=== PATIENT | female | born 1980 ===

== ENCOUNTER 2024-12-06 10:10 | Inpatient (IN) | payer OTHER ==
[~2024-12-06] VITALS: Ht 157.5 cm; Wt 92.0 kg
[2024-12-06] MEDS ORDERED: Bupropion HCl75 MG PO (13:19)
[2024-12-06] MEDS ORDERED: ESCI10 PO (13:19)
[2024-12-06] MEDS ORDERED: HALO2 PO (13:19)
[2024-12-06] MEDS ORDERED: OLANZAPINE20 M1 PO (13:21)
[2024-12-06] MEDS ORDERED: DEPAKOTE500 M1 PO (13:21)
[2024-12-06] MEDS ORDERED: Polyethylene Glycol 3350 17 gm PO PRN (13:35)
[2024-12-06] MEDS ORDERED: Ondansetron 4 MG SoluTab MM PRN (13:35)
[2024-12-06] MEDS ORDERED: Aluminum Hydroxide 320MG/5ML 473 ML PO PRN (13:40)
[2024-12-06] MEDS ORDERED: Haloperidol Lactate Inj. 5 MG/ML Injection IM PRN (13:40)
[2024-12-06] MEDS ORDERED: DiphenhydrAMINE HCl 50 MG/ML 1ML Vial IM PRN (13:40)
[2024-12-06 14:15] VITALS: BP 122/87
--- NOTE | 2024-12-06 15:23 | NUR ---
ADMISSTION NOTE: PT ARRIVED TO [facility] AT 1258 COMING FROM [facility] IN [place]. ALL BELONGINGS COLLECTED AND PLACED IN SAFE AND SECURE BIN. PT DRESSED DOWN INTO GREEN UNIT SCRUBS, SKIN CHECK COMPLETED BY THIS RN AND TEJAL Hutchins, SKIN WAS CLEAR OF ISSUES BUT NOTED THAT SHE HAS A CALLOUS ON THE OUTTER SIDE OF EACH LARGE TOE. PT STS HER REASON FOR ADMISSION IS THAT "I WANTED TO KILL MYSELF, MY FAMILY IS DYING, THEY ARE BEING MURDERED DAILY" PT STS HAVING A HX OF BPD, SCHIZO AFFECTIVE, ADHD. MOM & SISTER BOTH HAVE BPD AND WITH ADHD, ALL ARE LIVING PER PT. SHE STS NOT HAVING A PCP OR THERAPIST BUT GETS HER MEDICATION THROUGH [facility]. SHE ADMITS THAT SHE'S NOT BEEN TAKING HER MEDICATION AND THAT IT'S BEEN MONTHS SINCE SHE HAS HAD AN INVEGA SHOT. SHE ENDORSES GETTING A PO FORM OF INVEGA AT THE [facility] YESTERDAY. SHE IS LIVING ON SSI THAT HER FATHER CONTROLS AND RECEIVES SNAP. SHE ENDORSES BEING HOMELESS AND IS OFTEN INVOLVED IN ALTERCATIONS WHILE BEING ON THE STREETS. ADMITS SHE USES HER SSI TO PURCHASE HER DAILY METH AND OCCASIONAL FENTYNAL. DOES NOT HAVE TEETH AND NO DENTURES, OBTAINED A 9TH GRADE EDUCATION. SHE ENDORSES MULTIPLE UNSUCSESSFUL ATTEMPTS FOR SUICIDE. FIRST BEING AT AGE 14, SLITTING WRISTS, NEXT ATTEMPTED HANGING WITH SHEETS WHILE IN INTERMEDIATE AT AGE 21. AT SOME POINT SHE ALSO JUMPED OFF THE BRIDGE AT THE [facility] BUT NOTHING HAPPENED AND SHE DIDN'T DROWN LIKE SHE THOUGHT SHE MIGHT. HER FATHER HAS GUNS IN HIS HOME. PT DID STATE THAT SHE DID AN INPATIENT MONTHS LONG REHAB PROGRAM HERE IN [place] WITH DANTE, YEARS AGO. DURING INTERVIEW, PT SUDDENLY STARTED TALKING IN A BABY VOICE "MOMMY, I DON'T WANT YOU TO " PT BECAME SUDDENLY VERY EMOTIONAL, JUMPED UP AND STARTED SCREAMING. SHE WAS ABLE TO BE REDIRECTED TO SIT, RELAX AND BREATHE. SHE THEN STATED "I'M SORRY, THAT WAS JUST MY SON TALKING THROUGH ME." PT WAS ORIENTED TO THE UNIT. SHE IS VOLUNTARY AND UNDERSTANDS SHE WILL RECEIVE Q15 MIN MONITORING TO ENSURE PT SAFETY.
[2024-12-06 22:11] VITALS: BP 119/93
--- NOTE | 2024-12-07 04:50 | NUR ---
SHIFT SUMMARY: PATIENT WAS IN HER ROOM AT THE BEGINNING OF THE SHIFT, LYING ON HER BED. SHE APPEARED TO BE ASLEEP, BUT WOULD MOAN AT TIMES. SHE AWOKE FOR SEALER OPERATOR. SHE WAS UNABLE TO STAY ON TOPIC, AND HAD CONCERNS ABOUT "JACKSON" WHO IS "IN THE ROOM TRYING TO KILL MY PARENTS". SHE CONTINUED TO WORRY ABOUT "JACKSON" THROUGHOUT THE FIRST HALF OF THE SHIFT, YELLING OUT AND TALKING IN A LOW AND GROWLY VOICE AT TIMES. SHE WAS COMPLIANT WITH EVENING MEDICATIONS AND WITH PRN MEDICATIONS. IT APPEARED THAT SHE WAS RESPONDING TO AUDITORY HALLUCINATIONS EVIDENCED BY HER SAYING, "SHE KEEPS TALKING TO ME, SHE KEEPS TELLING ME SHE'S GOING TO KILL MY PARENTS!" SHE ATTEMPTED TO REST IN THE SECLUSION ROOM, BUT STATED, "JACKSON IS TOO LOUD HERE!" AND WENT BACK TO HER ROOM. SHE WAS COMPLIANT WITH VITALS. SHE C/O HUNGER CAUSING "A STOMACH ACHE" BUT WAS CONTENT WITH AMPHOJEL FOR HEARTBURN. AFTER ABOUT 0130, SHE WAS NOTED TO BE IN BED RESTING QUIETLY WITH EYES CLOSED AND RESPIRATIONS CONFIRMED. PATIENT SEEMS TO BE YOUNGER IN COGNITIVE AGE THAN HER CHRONOLOGICAL YEARS. CONTINUING TO MONITOR FOR SAFETY WITH Q15 MINUTE CHECKS.
[2024-12-07 08:06] LABS: BASOPHILS ABSOLUTE AUTO 0.02 K/mm3 (0.00-0.23); BASOPHILS PERCENT AUTO 0 % (0-2); EOSINOPHILS ABSOLUTE AUTO 0.06 K/mm3 (0.00-0.68); EOSINOPHILS PERCENT AUTO 1 % (0-6); Hematocrit 42.0 % (33.0-51.0); Hemoglobin 13.6 g/dL (11.5-16.0); IMMATURE GRAN ABSOLUTE AUTO 0.01 K/mm3 (0.00-0.10); IMMATURE GRAN PERCENT AUTO 0 % (0-1); LYMPHOCYTES ABSOLUTE AUTO 2.41 K/mm3 (0.84-5.20); LYMPHOCYTES PERCENT AUTO 43 % (21-46); MONOCYTES ABSOLUTE AUTO 0.37 K/mm3 (0.16-1.47); MONOCYTES PERCENT AUTO 7 % (4-13); Mean Corpuscular HGB Conc 32.4 g/dL (31.5-36.5); Mean Corpuscular Volume 84 fL (80-100); NEUTROPHILS ABSOLUTE AUTO 2.78 K/mm3 (1.96-9.15); NEUTROPHILS PERCENT AUTO 49 % (41-73); NRBC ABSOLUTE 0.00 K/mm3 (0.00-0.02); NRBC Auto 0.0 /100 WBC (0.0-0.2); Platelet Count 279 K/mm3 (150-400); RDW Coefficient Variation 13.0 % (11.7-14.2); RDW Standard Deviation 39.6 fL (35.1-46.3)
[2024-12-07 08:25] LABS: CHOL/HDL RATIO 3.8; Cholesterol 205 mg/dL (50-200); HDL Cholesterol 54 mg/dL (>39); LDL/HDL RATIO 2.4; Low Density Lipoprotein Chol 131 mg/dL (0-110); Triglycerides 100 mg/dL (30-160); Very Low Density Lipoprot Chol 20 mg/dL (6-32)
[2024-12-07 08:27] LABS: Alanine Aminotransfer (ALT/SGP 28 U/L (12-78); Albumin, Blood 3.6 g/dL (3.4-5.0); Albumin/Globulin Ratio 1.0 (0.8-1.8); Anion Gap 6 mmol/L (3-11); Aspartate Aminotrans (AST/SGOT 14 U/L (12-37); Bilirubin, Total 0.2 mg/dL (0.1-1.0); Blood Urea Nitrogen 12 mg/dL (8-24); CO2, Blood 29 mmol/L (21-32); Calcium, Blood 8.9 mg/dL (8.5-10.1); Chloride, Blood 105 mmol/L (98-108); Creatinine, Blood 0.72 mg/dL (0.40-1.00); Globulin, Blood 3.7 g/dL (2.2-4.0); Glucose, Blood 93 mg/dL (70-99); Potassium, Blood 4.4 mmol/L (3.5-5.5); Sodium, Blood 136 mmol/L (136-145); Total Protein, Blood 7.3 g/dL (6.4-8.2)
[2024-12-07] MEDS ORDERED: Multivitamins 1 Tab PO SCH (09:00)
--- NOTE | 2024-12-07 18:06 | NUR ---
SHIFT SUMMARY PT A/O TO SELF AND ENDORSES SI W/OUT A PLAN. SHE DENIES HI AND AVTH. HOWEVER, PT SAYS THAT SHE SEES HER FAMILY DYING AND SHE RESPONDS TO INTERNAL STIMULI. PT MOSTLY SLEPT THIS SHIFT, BUT DID HAVE A SCREAMING/GROWLING EPISODE. SHE WAS TREATED PER EMR FOR AGITATION. PT ATTENDS MEALS BUT DID NOT ATTEND GROUP.
[2024-12-07 20:45] VITALS: BP 114/89
--- NOTE | 2024-12-08 04:21 | NUR ---
SHIFT SUMMARY PT LAYING IN BED AT START OF SHIFT, AWAKE. SHE REPORTS SI BUT HAS NO PLAN. SHE HAS AUDITORY HALLUCINATIONS AND STATES THE VOICES ARE TELLING HER TO "HURT KIDS", SHE STATES SHE HAS NO PLAN TO DO SO. SHE ALSO REPORTS VISUAL HALLUCINATIONS WHERE SHE SEES HEAVEN AND THE COLOR RED. PT WAS COMPLIANT WITH MEDS, HAD EVENING SNACK, ATTENDED COMMUNITY WRAP-UP GROUP AND WENT TO BED. SHE HAS REMAINED IN BED THROUGHOUT THE NIGHT. Q15 MINUTE CHECKS TO CONTINUE PER PT SAFETY/UNIT PROTOCOL.
[2024-12-08 09:03] VITALS: BP 120/77
--- NOTE | 2024-12-08 12:38 | NUR ---
NURSE NOTE PT YELLING OUT IN HER ROOM, IF SHE IS TALKING TO SOMEONE, SOUNDING ANGRY. SHE STATES SHE IS RESPONDING TO INTERNAL STIMULI. SHE REMAINS COOPERATIVE WITH STAFF INTERVENTIONS AND WAS MEDICATED WITH ZYPREXA AND AGREED TO TRY TO USE HEADPHONES. SHORTLY AFTER BEING MEDICATED SHE LEFT HER ROOM AND JOINED GROUP.
--- NOTE | 2024-12-08 18:17 | NUR ---
SHIFT SUMMARY PT ALERT TO SELF AND HAS BEEN IN HER ROOM FOR THE MAJORITY OF THE SHIFT. PT ENDORSES SI WITHOUT A PLAN. SHE CONTINUES TO HAVE AVH WHERE KIDS ARE GETTING KILLED. PT A LOUD VERBAL OUTBURST TODAY IN RESPONSE TO INTERNAL STIMULI. PT REPORTED THAT HE VOICES WERE BEING MEAN TO HER AND SHE WAS SCREAMING AND CRYING. PT TREATED PER EMR AND HAS BEEN IN HER ROOM SINCE. SHE WAS NOT ABLE TO ATTEND GROUPS BUT ATTENDED ALL MEALS. SHE CONTINUES TO BE MONITORED Q15 FOR SAFETY AND WELLNESS.
[2024-12-08 20:58] VITALS: BP 110/81
--- NOTE | 2024-12-08 23:46 | NUR ---
SHIFT SUMMARY: REPORT GIVEN TO FERN MCKEON. PT A/O X4. PT ENDORSES TO BE SI ONLY. DENIES TO BE HI AND AVH AT THIS TIME.. DID NOT WANT TO INTERVIEW TONIGHT. "I'M TIRED AND WANT TO SLEEP." GIVEN MEDICATIONS AND PT THEN ROLLED OVER TO GO TO SLEEP. WILL CONTINUE TO BE MONITOR Q 15 MINS FOR WELLNESS AND SAFETY.
--- NOTE | 2024-12-09 04:12 | NUR ---
Assumed care at 0050 from LINDA Russell. Patient has been sleeping since in my care. Please see midnight shift summary. Will continue close observation eveery 15 minutes for comfort and safety
[2024-12-09 09:00] VITALS: BP 127/76
--- NOTE | 2024-12-09 10:37 | NUR ---
.SHIFT ASSESSMENT: PT ENDORSED THOUGHTS OF SELF HARM BY STRANGLING HERSEF WITH HER HANDS AND THOUGHTS OF HARMING HER COUSIN "PAGE." SHE REPORTED THAT, "VOICES ARE TELLING ME TO GO UPSTAIRS AND HAVE SEX ON MY FACE." SHE DESCRIBED HER MOD , "BAD." SHE REPORTED NECK AND BACK PAIN 12/10w
--- NOTE | 2024-12-10 00:34 | NUR ---
MID SHIFT SUMMARY Patient has spent the evening in bed with the exception of getting up at 2030 to have a snack. She took her medications without difficulty, then asked for a Trazodone to help her get back to sleep. When asked about SI, she stated the thoughts "go by quickly", but she does not have a plan. Denied HI, AVTH at that time. Patient back to bed just after 2030. Will continue close monitoring every 15 minutes for safety and patient comfort.
--- NOTE | 2024-12-10 04:09 | NUR ---
END OF SHIFT UPDATE ASSUMED CARE OF PT AT 0045. NO ACUTE CHANGES. PT HAS REMAINED IN BED THROUGHOUT THE NIGHT. Q15 MINUTE CHECKS TO CONTINUE PER PT SAFETY.
--- NOTE | 2024-12-10 08:56 | NUR ---
UPDATE DR OLSON CALLED D/T PT HAVING SI. ORDERS TO HAVE PT LOS AND TO NOT HAVE PT STAY IN ROOM/SLEEP ALL SHIFT. ORDERS TO HAVE PT AT NURSES STATION, GROUPS, LOS W/ STAFF. PT ENDORSING HI STATING THAT SHE IS WANTED TO HARM "DR FROM BACK HOME", NOT IDEATION FOR ANYONE ON UNIT AT THIS TIME.
[2024-12-10 09:00] VITALS: BP 120/96
--- NOTE | 2024-12-10 09:56 | NUR ---
UPDATE ORDERS GO BACK TO 15 MINUTE CHECKS. PT NOW DENYING SI.
--- NOTE | 2024-12-10 18:23 | NUR ---
SHIFT SUMMARY PT INITIALLY ENDORSED SI, HI, AV HALLUCINATIONS, BUT NOW DENIES SI, HI. 1:1 ORDER PLACED, BUT DR OLSON LIFTED AFTER TALKING W/ PT D/T PT NOW DENYING SI, HI. WHEN ASKED WHAT PT SEE'S, PT STATES SHE SEE'S "ANGELS AND DEMONS" AND THE VOICES SAY "YOU'RE WORTHLESS". PT C/O OF ANXIETY AND MEDICATED PER EMAR. WENT TO ONE GROUP. WENT TO MEALS, HAS OTHERWISE BEEN SLEEPING/RESTING QUIETLY IN BED. NO OTHER ACUTE EVENTS TODAY.
[2024-12-10 19:21] VITALS: BP 120/89
--- NOTE | 2024-12-11 04:33 | NUR ---
SHIFT SUMMARY: PATIENT WAS IN THE DINING AREA EATING DINNER AT THE BEGINNING OF THE SHIFT. SHE CAME OUT AND WENT TO BED, WHERE SHE WAS LYING STILL, BUT AWAKENED TO VOICE. SHE WAS ABLE TO PARTICIPATE IN ENDS DOWN CHECKER, ANSWERING QUESTIONS IN A SOMEWHAT LOGICAL MANNER. SHE STATED, "I FEEL SUICIDAL A LOT" BUT DENIED FEELING IT "RIGHT NOW". SHE STATED "I WON'T HURT MYSELF TODAY." SHE DENIED A/V/T HALLUCINATIONS. SHE WAS ASKED ABOUT "JACKSON", A VOICE THAT TORMENTS HER BY SAYING IT WILL KILL HER FAMILY. SHE STATED, "JACKSON IS AFRAID OF MY ROOMMATE. I'M GLAD I HAVE A ROOMMATE". SHE WAS COMPLIANT WITH EVENING MEDICATIONS, AND PARTICIPATED IN SNACK AND WRAP UP GROUP AT 2030. SHE THEN WENT TO BED, WHERE SHE WAS NOTED TO BE RESTING QUIETLY WITH EYES CLOSED AND RESPIRATIONS CONFIRMED, EXCEPT FOR AWAKENING ONCE TO ASK FOR GATORADE (WAS GIVEN WATER). CONTINUING TO MONITOR FOR SAFETY WITH Q15 MINUTE CHECKS.
[2024-12-11 08:54] VITALS: BP 133/89
[2024-12-11 19:32] VITALS: BP 128/88
--- NOTE | 2024-12-12 04:48 | NUR ---
SHIFT SUMMARY: PATIENT WAS IN THE DINING ROOM AREA EATING DINNER AT THE BEGINNING OF THE SHIFT. SHE THEN WENT TO HER ROOM AND LAY ON HER BED. SHE WAS ABLE TO ANSWER SEAT MENDER QUESTIONS IN A MOSTLY LOGICAL AND LINEAR MANNER. SHE STATED, "MANUEL WANTS TO KILL MY DAD!" AND HAD AN EPISODE OF YELLING, WHICH SHE STATED WAS "AT JACKSON FOR BEING MEAN". SHE STATED, "I LIKE HAVING MY ROOMMATE. WHEN SHE IS IN HERE, JACKSON GOES AWAY". SHE DENIED SUICIDAL IDEATION, THOUGHTS OF SELF HARMING AND A/V/T HALLUCINATIONS, ALTHOUGH SHE PRESENTED THOUGH SHE WAS HAVING A/V HALLUCINATIONS OF "JACKSON". SHE WAS COMPLIANT WITH EVENING MEDICATIONS, AND PARTICIPATED IN SNACK AND WRAP UP GROUP AT 2030. SHE WROTE THAT SOMEONE HAD "OFFERED ME A COUCH TO SLEEP ON WHEN I LEAVE HERE". SHE WENT TO HER ROOM TO GO BACK TO BED, BUT WAS UP A FEW TIMES DURING THE SHIFT. WHEN SHE GETS UP, SHE WANTS SOMETHING TO EAT, AND MEDICATION. WE DO NOT GIVE FOOD AT NIGHT, BUT SHE WAS OFFERED WATER AND GIVEN ATIVAN REQUESTED FOR ANXIETY SECONDARY TO INSOMNIA, AND AMPHOJEL FOR "STOMACH ACHE". CONTINUING TO MONITOR FOR SAFETY WITH Q15 MINUTE CHECKS.
[2024-12-12 08:47] VITALS: BP 120/90
--- NOTE | 2024-12-12 18:28 | NUR ---
SHIFT SUMMARY PT ENDORSED SI, W/ NO PLAN. ENDORSES HI AGAINST "BAD PEOPLE", BUT DENIES TOWARDS ANYONE ON UNIT. DENIED VOICES ALL SHIFT. ONLY REQUESTED ATIVAN, DID NOT REQUEST ZYPREXScott KOTHARIN LIKE SHE HAS BEEN FOR PAST TWO SHIFTS FOR THIS RN. ATTENDED ONE GROUP, BUT HAS BEEN SLEEPING/RESTING QUIETLY FOR MOST OF DAY. ATTENDED MEALS.
[2024-12-12 19:48] VITALS: BP 126/83
--- NOTE | 2024-12-13 06:01 | NUR ---
SHIFT SUMMARY Pt is A&O, calm, cooperative, eye contact is good. Pt described her mood as I m hearing voices, affect is blunted. Pt denies current HI, but endorsed passive SI without plan or intent. Pt also endorsed AH of voices telling her to hurt myself. During rounds, pt requested olanzapine because it s the only thing that stops the voices, and HS olanzapine dose was given at 1999. Pt endorsed lower back pain 7/10w and received PRN ibuprofen with HS meds; pt was asleep at time of reassessment. Pt was up for evening snack, but otherwise stayed in her room. Staff continues to monitor q15m for safety and wellness.
[2024-12-13 09:13] VITALS: BP 129/88
--- NOTE | 2024-12-13 18:02 | NUR ---
SHIFT SUMMARY PT ENDORSES SI W/ NO PLAN, HI AGAINST "BAD PEOPLE", BUT NOONE ON UNIT. ENDORSES SEEING HER "CHILDREN ON A OLSON" AND THIS AM WAS STATING THE AUDITORY HALLCUINATIONS WERE TELLING HER "I LOVE YOU, DON'T HURT ME". END OF SHIFT, THE VOICES WAS HER DAD TELLING HER THAT HE WAS GOING TO "KILL HER CHILDREN", PT TOLD REJI MCKEON. AFTER REJI MCKEON TOLD PT THAT THE VOICES AREN'T REAL, PT STATED THANK YOU AND APPEARED LESS AGITATED AND ENDORSED IT MAKING HER "FEEL BETTER" (TO REJI MCKEON). NO ACUTE EVENTS SINCE THEN. PRN ZYPREXA AND ATIVAN USED TO MANAGE ANXIETY.
[2024-12-13 19:36] VITALS: BP 121/83
--- NOTE | 2024-12-14 04:13 | NUR ---
SHIFT SUMMARY AT BEGINNING OF SHIFT PATIENT IN AND OUT OF HER ROOM FREQUENTLY. REQUESTING COFFEE. DENIES SI, HI OR AVH, VERBALIZED THAT HALLUCINATIONS COME AND GO. VERBALIZED THAT SHE IS FEELING "LOW" AND "TIRED" COOPERATIVE WITH HS MEDICATIONS, WANTING TO TALK TO THE DOCTOR ABOUT RESTARTING WELLBUTRIN . PATIENT GOING TO BED SHORTLY AFTER SNACK, AWAKE AT 2345 C/O DIFFICULTY SLEEPING REPEAT DOSE TRAZODONE GIVEN. PATIENT APPEARS TO BE SLEEPING WELL THE REST OF THE NIGHT RESP EVEN AND UNLABORED. CONTINUE TO MONITOR Q15MIN
--- NOTE | 2024-12-14 04:33 | NUR ---
UPDATE PATIENT AWAKE, REQUESTING SOMETHING TO EAT. SNACK GIVEN, PATIENT REMINDED THAT WE HAVE SET DINNING TIMES, PATIENT AGREES TO NOT SKIP DINNER TODAY. NO OTHER CHANGES AT THIS TIME
[2024-12-14 08:52] VITALS: BP 113/86
--- NOTE | 2024-12-14 16:52 | NUR ---
SHIFT SUMMARY: PT ALERT AND COOPERATIVE WITH CARE. DENIES SI AND HI. ENDORESES HEARING HER DAD'S VOICE AND SEEING LIGHTS. PT ATTEMPTED TO ATTEND GROUPS IN THE AM. CAME TO THE NURSES STATION AND REQUESTED SOMETHING FOR ANXIETY. STATES, "I HAVE SOCIAL ANXIETY, I CAN'T STAY IN THERE RIGHT NOW". PT WAS MEDICATED WITH PRN FOR ANXIETY. LATER PATIENT RETURNED TO THE NURSES STATION STATED, "I NEED SOMETHING TO STOP THE VOICES". PT WAS MEDICATED WITH PRN PER EMAR. PT LATER LAYING ON HER BED, ROCKING BACK AND FORTH AND CRYING. STATES THAT SHE WAS SEEING LIGHTS TURNING OFF AND ON. STATES, "THE LIGHTS MAKE ME THINK OF MY SON". PT WAS MEDICATED PER EMAR WITH REPEAT DOSE OF MEDICATION PER ORDERS. PT RATES HER ANXIETY AT 9/10.
[2024-12-14 20:37] VITALS: BP 120/93
--- NOTE | 2024-12-15 04:11 | NUR ---
Patient is alert and oriented times four. She slept most of the evening except to be woken for brief assessment and snack time. She stated she was still hearing voices intermittantly and having occasional suicidal ideation without a plan. No visual or tactile hallucinations noted. Nicolasa also would like to speak with the Doctor about possibly restarting Wellbutrin. Will continue close observation every 15 minutes for comfort and safety.
[2024-12-15 07:42] VITALS: BP 115/93
[2024-12-15 09:03] VITALS: BP 121/91
--- NOTE | 2024-12-15 18:23 | NUR ---
SHIFT SUMMARY PT A/O X3. SHE REPORTS SOME PASSIVE SI WELL AVH. PT IS NOT ALWAYS AWARE THAT SHE IS HAVING HALLUCINATIONS. HER HALLUCINATIONS CAUSED HER DISTRESS A FEW TIMES THIS SHIFT AND SHE WAS TREATED PER EMR. PT REPORTS THAT SHE SAW HER DAD AND HE WAS TELLING HER TO KILL HER CHILDREN. SHE ATTENDS SOME GROUPS. SHE CONTINUES TO NEED A LOT OF ENCOURAGEMENT TO BATHE AND CHANGE HER CLOTHES.
[2024-12-15 20:47] VITALS: BP 119/86
--- NOTE | 2024-12-16 04:34 | NUR ---
SHIFT SUMMARY PT LAYING IN BED AT START OF SHIFT. SHE REPORTS HER MOOD 'TIRED AND ANXIOUS". SHE REPORTS CURRENT SI, WITH NO PLAN OR INTENT. SHE DENIES ANY HI. SHE STATES SHE HAS VISUAL HALLUCINATIONS ABOUT GOING TO HEAVEN AND AUDITORY HALLUCINATIONS WHERE SHE HEARS HER KIDS TALKING. SHE IS CALM AND COOPERATIVE WITH CARE. SHE WAS COMPLIANT WITH MEDS AND RECEIVED PRN TRAZODONE AND MELATONIN. SHE HAD HER EVENING SNACK AND PARTICIPATED IN COMMUNITY WRAP UP GROUP AND THEN WENT BACK TO BED. SHE PRESENTED TO THE NURSES STATION AT AROUND 0100 AND REPORTED AN UPSET STOMACH AND WANTED SOMETHING TO EAT. SHE RECEIVED PRN AMPHOJEL AND WENT BACK TO BED. Q15 MINUTE CHECKS TO CONTINUE PER PT SAFETY/UNIT PROTOCOL.
[2024-12-16 07:27] VITALS: BP 107/83
[2024-12-16] MEDS ORDERED: Haloperidol Decanoate 50 MG / ML 1ML Amp IM SCH (09:00)
--- NOTE | 2024-12-16 16:58 | NUR ---
SHIFT SUMMARY PT CONTINUES TO ENDORSE PASSIVE SI AND AVH. SHE BECAME AGITATED THIS AM WHEN ASKED TO WASH HER HAIR AND PARTICIPATE IN HEAD CHECK FOR LICE. PT REQUIRED IM PRN MEDICATION DUE TO EXTENT OF OUTBURST, BUT WAS OVERALL AGREEABLE. AFTER RECEIVING PRN AND MORNING MEDICATION PT WAS COOPERATIVE WITH INSPECTION AND TOOK A SHOWER. NO LICE FOUND ON PATIENT, BUT SHE HAS A SIGNIFICANT AMOUNT OF DANDRUF. PT WAS ABLE TO ATTEND TWO GROUPS THIS SHIFT BUT DID STILL STRUGGLE WITH THE HALLUCINATIONS. AT TIMES SHE APPEARS CHILD-LIKE AND SOMETIMES RESPONDS WELL TO STAFF TELLING THE VOICES TO GET OUT OF HER ROOM. PT SCHEDULED TO GET LONG ACTING IM HALDOL THIS SHIFT. PERSONAL WOODEN ARTWORK MADE IN GROUP WAS FOUND IN HER ROOM. ARTWORK REMOVED FROM ROOM AND WILL BE RETURNED TO THE PATIENT UPON DISCHARGE. SHE CONTINUES TO BE MONITORED Q15 FOR SAFETY AND WELLNESS.
[2024-12-16 19:37] VITALS: BP 117/83
--- NOTE | 2024-12-17 04:20 | NUR ---
SHIFT SUMMARY PT CRYING LOUDLY IN HER ROOM AT THE START OF SHIFT. SHE STATES SHE IS TIRED OF BEING HERE AND IS READY TO GO HOME. PT REPORTS SI, BUT NO INTENT. SHE ENDORSES HI TOWARDS "PEOPLE WHO HURT MY KIDS". SHE ALSO REPORTS AUDITORY HALLUCINATIONS OF HEARING HER KIDS TALKING AND VISUAL HALLUCINATIONS OF HEAVEN. DISCUSSED GOALS FOR DISCHARGE AND PT REMAINED CALM. SHE WAS COMPLIANT WITH MEDS AND RECEIVED PRN MELATONIN AND TRAZODONE. SHE HAD EVENING SNACK AND PARTICIPATED IN WRAP UP GROUP PRIOR TO RETURNING TO BED. SHE HAS APPEARED TO SLEEP WELL THROUGHOUT THE NIGHT WITH RESPIRATIONS CONFIRMED WITH Q15 MINUTE CHECKS.
[2024-12-17 08:40] VITALS: BP 127/97
[2024-12-17] MEDS ORDERED: BuPROPion HCl SR 100 MG TabCR PO SCH (11:00)
--- NOTE | 2024-12-17 18:04 | NUR ---
SHIFT NOTE PT WAS CALM AND MAKING HER BED IN THE MORNING. SHE DENIED ANY SI/HI/AVH AT THIS TIME AND APPEARED HAPPY. 15 MINUTES LATER SHE CAME TO THE NURSES STATION AND STATES SHE LIED AND SHE WAS HEARING VOICES AND REQUESTED A PRN FOR ANXIETY. SHE WAS GIVEN ZYPREXA AND HEAD PHONES AND SHE STATES SHE WILL GO TO GROUP AND SEE IF THAT HELPS. AFTER GROUP SHE STATES HER ANXIETY IS 8/10 AND THE VOICES ARE TELLING HER THEY ARE GOING TO SKIN HER CHILDREN ALIVE. SHE WAS THEN GIVEN ATIVAN PRN. SHE WENT TO ROOM AND CRIED LOUDLY. PT CALMED DOWN AFTER A WHILE AND ATTENDED LATER GROUP FOR SHORT AMOUNTS OF TIME. SHE THEN ESCELATED AND WAS GIVEN HALDOL BY REJI MCKEON. BY END OF SHIFT PT APPEARED CALM AND SAID SHE WAS DOING MUCH BETTER AND MADE A PHONE CALL. ALL Q15 MIN CHECKS WERE PERFORMED.
[2024-12-17 20:03] VITALS: BP 122/83
--- NOTE | 2024-12-18 04:35 | NUR ---
SHIFT SUMMARY: PATIENT WAS IN HER ROOM AT THE BEGINNING OF THE SHIFT. SHE WAS GROWLING AND YELLING INTERMITTENTLY, AND WHEN APPROACHED, STATED, "I DIDN'T DO IT". SHE WAS ABLE TO ANSWER BINDER SORTER QUESTIONS IN A SOMEWHAT LOGICAL AND LINEAR MANNER. SHE STATED THAT SHE IS LEAVING TOMORROW (12/18/24). SHE STATED, "I HAVE A PLACE TO STAY. THAT LADY TOLD ME I CAN COME TO HER HOUSE". SHE ALSO WROTE ON HER WRAP UP GROUP PAPER THAT SHE HAS A PLACE TO STAY. SHE IS BEING DISCHARGED TO [facility], SHE IS CHOOSING TO STAY IN [place] FOR NOW AND GET SERVICES FROM [facility]. SHE DENIED SUICIDAL IDEATION, THOUGHTS OF SELF HARMING AND A/V/T HALLUCINATIONS. SHE PRESENTED HAVING AUDITORY AND POSSIBLY VISUAL HALLUCINATIONS EVIDENCED BY YELLING AND GROWLING AT UNSEEN OTHERS. SHE CAME OUT FOR SNACK AND WRAP UP GROUP, AND SHE WAS COMPLIANT WITH EVENING MEDICATIONS. SHE ASKED WHAT HER MEDICATIONS WERE FOR, BUT WHEN MEDICATION EDUCATION WAS GIVEN, SHE CEASED TO PARTICIPATE. SHE WENT BACK TO HER ROOM AND WAS NOTED TO BE IN BED RESTING WITH EYES CLOSED AND RESPIRATIONS CONFIRMED FOR THE REMAINDER OF THE SHIFT, EXCEPT FOR GETTING UP FOR TYLENOL X1 FOR ALL OVER BODY ACHES 7/10 (EFFECTIVE) AND X1 FOR WATER. CONTINUING TO MONITOR FOR SAFETY WITH Q15 MINUTE CHECKS.
--- NOTE | 2024-12-18 08:30 | NUR ---
IMPORTANT DISCHARGE INFORMATION PATIENT DISCHARGING TODAY AT 2PM. JOSE DE JESUSMARILYNNINE TAXI COMING AT 1PM TO TRANSPORT HER TO THE [facility]. NEW PCP AT THE [facility] IN [place] WITH DR. MENDOZA ON 12/24/24 AT 10:40AM. ENCOURAGED PATIENT TO USE [facility] AND WRAP AROUND SERVICES. PHARMACY: [facility]
[2024-12-18 08:45] VITALS: BP 128/90
[2024-12-18] MEDS ORDERED: Prozac20 MG PO (11:52)
[2024-12-18] MEDS ORDERED: Haldol Dec50 MG/1 ML IM (11:54)
[2024-12-18] MEDS ORDERED: HALOPERIDOL10 M1 PO (11:57)
--- NOTE | 2024-12-18 15:18 | NUR ---
DISCHARGE NOTE: PT DISCHARGED TO THE [facility]. PT DECLINED TO STAY UNTIL SATURDAY. PT STATED UNDERSTANDING OF DISCHARGE INSTRUCTIONS. PT OUT OF UNIT TO [facility] TRANSPORT WITH BELONINGS AND DISCHARGE INSTRUCTIONS IN HAND.
[2024-12-20] MEDS ORDERED: ESCI10 PO (11:24)
== END 2024-12-18 15:13 | disposition home or self-care (01) | DRG 885 ==
LOC: BHU 10:10
PROVIDERS: Psychiatry & Neurology Psychiatry; ADMIT Student in an Organized Health Care Education/Training Program
DX: F25.9 Schizoaffective disorder, unspecified (principal); F19.20 Other psychoactive substance dependence, uncomplicated; R45.851 Suicidal ideations; Z59.00 Homelessness unspecified; F15.10 Other stimulant abuse, uncomplicated; Z79.899 Other long term (current) drug therapy
CPT/HCPCS: 36415; 80053; 80061; 80164; 82140; 83036; 85025; A9270; J1200; J1630

== ENCOUNTER 2024-12-19 11:55 | Observation (INO) | payer OTHER ==
[~2024-12-19] VITALS: Ht 157.5 cm; Wt 99.8 kg
[~2024-12-19 11:55] MED LIST: Bupropion HCl75 MG PO; DEPAKOTE500 M1 PO; ESCI10 PO; HALO2 PO; HALOPERIDOL10 M1 PO; Haldol Dec50 MG/1 ML IM; OLANZAPINE20 M1 PO; Prozac20 MG PO
[2024-12-19 12:41] LABS: BASOPHILS ABSOLUTE AUTO 0.03 K/mm3 (0.00-0.23); BASOPHILS PERCENT AUTO 0 % (0-2); EOSINOPHILS ABSOLUTE AUTO 0.03 K/mm3 (0.00-0.68); EOSINOPHILS PERCENT AUTO 0 % (0-6); Hematocrit 41.6 % (33.0-51.0); Hemoglobin 13.5 g/dL (11.5-16.0); IMMATURE GRAN ABSOLUTE AUTO 0.04 K/mm3 (0.00-0.10); IMMATURE GRAN PERCENT AUTO 1 % (0-1); LYMPHOCYTES ABSOLUTE AUTO 3.06 K/mm3 (0.84-5.20); LYMPHOCYTES PERCENT AUTO 35 % (21-46); MONOCYTES ABSOLUTE AUTO 0.78 K/mm3 (0.16-1.47); MONOCYTES PERCENT AUTO 9 % (4-13); Mean Corpuscular HGB Conc 32.5 g/dL (31.5-36.5); Mean Corpuscular Volume 82 fL (80-100); NEUTROPHILS ABSOLUTE AUTO 4.92 K/mm3 (1.96-9.15); NEUTROPHILS PERCENT AUTO 56 % (41-73); NRBC ABSOLUTE 0.00 K/mm3 (0.00-0.02); NRBC Auto 0.0 /100 WBC (0.0-0.2); Platelet Count 218 K/mm3 (150-400); RDW Coefficient Variation 13.6 % (11.7-14.2); RDW Standard Deviation 40.8 fL (35.1-46.3)
[2024-12-19 13:08] LABS: Ethanol (Alcohol), Blood, Med 205 mg/dL; Salicylate 1.8 mg/dL (2.8-20.0)
[2024-12-19 13:15] LABS: Acetaminophen, Random <2.0 ug/mL (10.0-30.0); Alanine Aminotransfer (ALT/SGP 23 U/L (12-78); Albumin, Blood 3.6 g/dL (3.4-5.0); Albumin/Globulin Ratio 0.9 (0.8-1.8); Anion Gap 10 mmol/L (3-11); Aspartate Aminotrans (AST/SGOT 18 U/L (12-37); Bilirubin, Total 0.2 mg/dL (0.1-1.0); Blood Urea Nitrogen 11 mg/dL (8-24); CO2, Blood 25 mmol/L (21-32); Calcium, Blood 8.4 mg/dL (8.5-10.1); Chloride, Blood 103 mmol/L (98-108); Creatinine, Blood 0.59 mg/dL (0.40-1.00); Globulin, Blood 3.8 g/dL (2.2-4.0); Glucose, Blood 73 mg/dL (70-99); Potassium, Blood 3.6 mmol/L (3.5-5.5); Sodium, Blood 134 mmol/L (136-145); Total Protein, Blood 7.4 g/dL (6.4-8.2)
[2024-12-19 13:17] LABS: Source, Urine Clean Catch
[2024-12-19 13:41] LABS: Bilirubin, Urine Neg (Neg); Glucose Qualitative, Urine Neg (Neg); Ketones, Urine Neg (Neg); Leukocyte Esterase, Urine Neg (Neg); Protein, Urine Neg (Neg); Specific Gravity, Urine 1.010 (1.003-1.022); Urobilinogen, Urine NORM (Normal)
[2024-12-19 14:01] LABS: U Amphetamine Screen Not Detected; U Barbituate Screen Not Detected; U Benzodiazapine Screen DETECTED; U Buprenorphine Screen Not Detected; U Cannabinoids Screen Not Detected; U Cocaine Screen Not Detected; U Methadone Screen Not Detected; U Methamphetamine Screen Not Detected; U Opiates Screen Not Detected; U Oxycodone Screen Not Detected; U Phencyclidine Screen Not Detected
[2024-12-19 14:04] LABS: Color, Urine Pale Yellow (P-Yellow)
[2024-12-19] MEDS ORDERED: Divalproex Sodium 500 MG TABCR PO ONE (22:25)
[2024-12-20] MEDS ORDERED: BUPROPION XL150 M1 PO (11:23)
[2024-12-20] MEDS ORDERED: Naltrexone HCl50 MG PO (11:24)
[2024-12-20] MEDS ORDERED: HYDPAM50 PO (11:25)
[2024-12-20] MEDS ORDERED: METFORMIN HCL500 M2 PO (11:26)
[2024-12-20] MEDS ORDERED: PROAIR RESPICL90 MCG IH (11:30)
[2024-12-20] MEDS ORDERED: Haldol 5 mg Tab5 MG PO (11:30)
[2024-12-20] MEDS ORDERED: CLON.1 PO (11:33)
[2024-12-20] MEDS ORDERED: BENZTROPINE MESY1 M6 PO (11:36)
== END 2024-12-21 11:57 | disposition home or self-care (01) ==
LOC: ER 11:55 → EOR 11:56
PROVIDERS: Physician Assistant; ADMIT Student in an Organized Health Care Education/Training Program
DX: F25.9 Schizoaffective disorder, unspecified (principal); F19.10 Other psychoactive substance abuse, uncomplicated; F10.129 Alcohol abuse with intoxication, unspecified
CPT/HCPCS: 80053; 80320; 81003; 84702; 85025; 99285; A9270; G0378; G0480

== ENCOUNTER 2024-12-23 08:36 | Observation (INO) | payer OTHER ==
[~2024-12-23] VITALS: Ht 157.5 cm; Wt 81.7 kg
[~2024-12-23 08:36] MED LIST changes: +BENZTROPINE MESY1 M6 PO; +BUPROPION XL150 M1 PO; +CLON.1 PO; +HYDPAM50 PO; +Haldol 5 mg Tab5 MG PO; +METFORMIN HCL500 M2 PO; +Naltrexone HCl50 MG PO; +PROAIR RESPICL90 MCG IH
[2024-12-23 09:49] LABS: BASOPHILS ABSOLUTE AUTO 0.03 K/mm3 (0.00-0.23); BASOPHILS PERCENT AUTO 0 % (0-2); EOSINOPHILS ABSOLUTE AUTO 0.04 K/mm3 (0.00-0.68); EOSINOPHILS PERCENT AUTO 0 % (0-6); Hematocrit 39.2 % (33.0-51.0); Hemoglobin 12.7 g/dL (11.5-16.0); IMMATURE GRAN ABSOLUTE AUTO 0.04 K/mm3 (0.00-0.10); IMMATURE GRAN PERCENT AUTO 0 % (0-1); LYMPHOCYTES ABSOLUTE AUTO 3.51 K/mm3 (0.84-5.20); LYMPHOCYTES PERCENT AUTO 34 % (21-46); MONOCYTES ABSOLUTE AUTO 1.00 K/mm3 (0.16-1.47); MONOCYTES PERCENT AUTO 10 % (4-13); Mean Corpuscular HGB Conc 32.4 g/dL (31.5-36.5); Mean Corpuscular Volume 84 fL (80-100); NEUTROPHILS ABSOLUTE AUTO 5.80 K/mm3 (1.96-9.15); NEUTROPHILS PERCENT AUTO 56 % (41-73); NRBC ABSOLUTE 0.00 K/mm3 (0.00-0.02); NRBC Auto 0.0 /100 WBC (0.0-0.2); Platelet Count 219 K/mm3 (150-400); RDW Coefficient Variation 14.1 % (11.7-14.2); RDW Standard Deviation 43.2 fL (35.1-46.3)
[2024-12-23 10:12] LABS: Ethanol (Alcohol), Blood, Med <3 mg/dL; Salicylate 2.1 mg/dL (2.8-20.0)
[2024-12-23 10:14] LABS: Acetaminophen, Random <2.0 ug/mL (10.0-30.0); Alanine Aminotransfer (ALT/SGP 26 U/L (12-78); Albumin, Blood 3.4 g/dL (3.4-5.0); Albumin/Globulin Ratio 0.9 (0.8-1.8); Anion Gap 9 mmol/L (3-11); Aspartate Aminotrans (AST/SGOT 18 U/L (12-37); Bilirubin, Total 0.3 mg/dL (0.1-1.0); Blood Urea Nitrogen 16 mg/dL (8-24); CO2, Blood 26 mmol/L (21-32); Calcium, Blood 8.1 mg/dL (8.5-10.1); Chloride, Blood 108 mmol/L (98-108); Creatinine, Blood 0.63 mg/dL (0.40-1.00); Globulin, Blood 3.7 g/dL (2.2-4.0); Glucose, Blood 123 mg/dL (70-99); Potassium, Blood 3.7 mmol/L (3.5-5.5); Sodium, Blood 139 mmol/L (136-145); Total Protein, Blood 7.1 g/dL (6.4-8.2)
[2024-12-23 11:03] LABS: Source, Urine Clean Catch
[2024-12-23 11:08] LABS: Bilirubin, Urine Neg (Neg); Color, Urine Yellow (P-Yellow); Glucose Qualitative, Urine Neg (Neg); Ketones, Urine 1+ (Neg); Leukocyte Esterase, Urine 2+ (Neg); Protein, Urine 1+ (Neg); Specific Gravity, Urine 1.025 (1.003-1.022); Urobilinogen, Urine 1+ (Normal)
[2024-12-23 11:19] LABS: Red Blood Cells, Urine 0-2 /hpf (0-2)
[2024-12-23 11:21] LABS: U Amphetamine Screen DETECTED; U Benzodiazapine Screen DETECTED; U Cannabinoids Screen DETECTED; U Methamphetamine Screen DETECTED
[2024-12-23 11:22] LABS: U Barbituate Screen Not Detected; U Buprenorphine Screen Not Detected; U Cocaine Screen Not Detected; U Methadone Screen Not Detected; U Opiates Screen Not Detected; U Oxycodone Screen Not Detected; U Phencyclidine Screen Not Detected
[2024-12-23] MEDS ORDERED: OMEP20ER PO (16:39)
[2024-12-23] MEDS ORDERED: PALIPERIDONE ER9 MG PO (16:39)
[2024-12-23] MEDS ORDERED: Chlorpromazine50 MG PO (16:40)
== END 2024-12-24 16:05 | disposition other institution (70) ==
LOC: ER 08:36 → EOR 08:37
PROVIDERS: Student in an Organized Health Care Education/Training Program; ADMIT Emergency Medicine
DX: F25.9 Schizoaffective disorder, unspecified (principal); F19.20 Other psychoactive substance dependence, uncomplicated; Z88.2 Allergy status to sulfonamides; Z79.899 Other long term (current) drug therapy; Z59.00 Homelessness unspecified
CPT/HCPCS: 80053; 80320; 81001; 81025; 85025; 87086; 99285; A9270; G0378; G0480

== ENCOUNTER 2024-12-24 12:20 | Inpatient (IN) | payer OTHER ==
[~2024-12-24 12:20] MED LIST changes: +Chlorpromazine50 MG PO; +OMEP20ER PO; +PALIPERIDONE ER9 MG PO
[2024-12-24] MEDS ORDERED: Aluminum Hydroxide 320MG/5ML 473 ML PO PRN (16:05)
[2024-12-24] MEDS ORDERED: DiphenhydrAMINE HCl 50 MG/ML 1ML Vial IM PRN (16:05)
[2024-12-24] MEDS ORDERED: Haloperidol Lactate Inj. 5 MG/ML Injection IM PRN (16:05)
[2024-12-24] MEDS ORDERED: Polyethylene Glycol 3350 17 gm PO PRN (16:10)
[2024-12-24] MEDS ORDERED: Ondansetron 4 MG SoluTab MM PRN (16:10)
[2024-12-24 16:15] VITALS: BP 120/88
--- NOTE | 2024-12-24 17:06 | NUR ---
ADMIT/SHIFT SUMMARY PT ARRIVED ON UNIT AT 1607. ADMIT PROCESS STARTED AND PT BECAME AGITATED AND ASKING TO "DO THIS LATER" AND SCREAMING. THERAPEUTIC COMMUNICATION USED AND INFORMED PT THAT SHE WAS IN A SAFE PLACE. PT CONTINUED GET MORE AGITATED AND BEGAN SCREAMING AGAIN. INFORMED PT THAT THE ADMIT QUESTIONS COULD BE DONE LATER AND THAT SHE CAN GO LAY DOWN IN ROOM. PT NOW RESTING QUIETLY/SLEEPING IN ROOM AT TIME OF THIS NOTE. CONSENT FORMS SIGNED W/ GARCIA MCKEON.
--- NOTE | 2024-12-24 17:13 | NUR ---
UPDATE DENIES SI, ENDORSES HI "KILLING MY CHILDREN", ENDORSES AUDITORY HALLUCINATIONS "I HEAR SCREAMING AND BABIES SCREAMING", ENDORSES VISUAL HALLUCINATIONS, "I SEE VIDEO'S AND PICTURES".
--- NOTE | 2024-12-24 18:25 | NUR ---
UPDATE PT AGITATED AND SCREAMING, ZYPREXA GIVEN PER EMAR. PT NOW RESTING QUIETLY/SLEEPING AT THIS TIME.
[2024-12-24 19:20] VITALS: BP 114/67
[2024-12-24 22:36] VITALS: BP 114/67
--- NOTE | 2024-12-25 05:20 | NUR ---
SHIFT SUMMARY: PATIENT WAS IN BED RESTING WITH EYES CLOSED AT THE BEGINNING OF THE SHIFT. STAFF STATED THAT SHE HAD EATEN DINNER AND GONE RIGHT BACK TO BED. SHE ANSWERED RN WITH GRUNTS AND AN OCCASIONAL WORD. THROUGH TRIAL AND ERROR, RN AND PATIENT WERE ABLE TO GET SOME MORE OF THE ADMIT DONE. SHE WOULD NOT GET UP AND DID NOT WANT TO SIGN PAPERWORK. SHE REFUSED SNACK X2, AND THEN WAS TOLD THAT THIS WAS THE LAST FOOD UNTIL BREAKFAST, AT WHICH TIME SHE GOT UP AND WENT TO HAVE HER SNACK, WHICH SHE CONSUMED QUICKLY. SHE WAS NOT ABLE/WILLING TO ANSWER WHETHER OR NOT SHE HAS SUICIDAL IDEATION, THOUGHTS OF SELF HARMING OR A/V/T HALLUCINATIONS. SHE DID NOT CRY OUT THIS SHIFT, NOR TRY TO HARM HERSELF. SHE MISSED EVENING MEDICATIONS, AND HAS NOT YET AWAKENED. SHE CONTINUED TO LIE IN BED RESTING WITH EYES CLOSED AND RESPIRATIONS CONFIRMED. CONTINUING TO MONITOR FOR SAFETY WITH Q15 MINUTE CHECKS.
[2024-12-25 08:25] LABS: CHOL/HDL RATIO 2.9; Cholesterol 181 mg/dL (50-200); HDL Cholesterol 62 mg/dL (>39); LDL/HDL RATIO 1.6; Low Density Lipoprotein Chol 101 mg/dL (0-110); Triglycerides 90 mg/dL (30-160); Very Low Density Lipoprot Chol 18 mg/dL (6-32)
[2024-12-25 08:54] VITALS: BP 131/94
[2024-12-25] MEDS ORDERED: Multivitamins 1 Tab PO SCH (09:00)
[2024-12-25] MEDS ORDERED: Albuterol HFA200 ACT/6.7 GM INH INH PRN (11:05)
--- NOTE | 2024-12-25 18:30 | NUR ---
SHIFT SUMMARY PT ENDORSES SI, NO PLAN. HI "I WANT TO KILL MY CHILDREN". ENDORSES HEARING VOICES "I HEAR CRYING, BABIES CRYING" AND SEEING "PICTURES AND VIDEO. PT BECAME AGITATED SEVERAL TIMES THROUGHOUT DAY (SEE EMAR FOR PRNS USED FOR EACH EVENT). PT SCREAMING ABOUT WANTING TO LEAVE, OR WANTING MEDS. DR BANEGAS AWARE OF AGITATION. THERAPEUTIC COMMUNICATION APPEARS TO BE EFFECTIVE FOR 10 MIN-FEW HOURS BEFORE PT BECOMES AGITATED AGAIN AND REQUESTING MORE MEDS. WHEN ASKED TO TRY USING COPING SKLLS LEARNED IN GROUPS, DEEP BREATHING EXERCISES, PT STATES OK, THEN STARTS SCREAMING AFTER THIS RN OR OTHER STAFF LEAVES. PT SCREAMING OBSCENITIES AT STAFF OR AT HER DAD WHO PT HAS SAID "MY DADS INSIDE ME" NEAR END OF SHIFT.
[2024-12-25 19:14] VITALS: BP 137/91
--- NOTE | 2024-12-26 04:47 | NUR ---
SHIFT SUMMARY: PATIENT WAS IN HER ROOM APPEARING ASLEEP AT THE BEGINNING OF THE SHIFT. SHE HAD EATEN HER DINNER IN RECORD TIME AND GONE BACK TO BED, PER DAY SHIFT STAFF. SHE WAS ENCOURAGED TO GET UP FOR SNACK TIME, WHICH SHE DID. SHE WAS COMPLIANT WITH EVENING MEDICATIONS. SHE WAS SOMEWHAT INTERACTIVE THROUGHOUT MATERIALS PLANNING MANAGER. SHE STATED THAT "AMANDA JACKSON" WAS TRYING TO "KILL MY CHILDREN". SHE STATED, "THEY ARE IN THE BASEMENT, TRYING TO KILL MY FAMILY". SHE WAS REASSURED THAT THERE IS NO BASEMENT HERE, THEY ARE VOICES TRYING TO LIE TO HER, AND SHE CAN USE COPING SKILLS TO HELP ALLEVIATE THAT. SHE NODDED BUT WENT OFF TO BED. SHE DENIED SUICIDAL IDEATION, THOUGHTS OF SELF HARMING AND ALSO DENIED ANY HALLUCINATIONS, ALTHOUGH IT APPEARED THAT SHE WAS HAVING AT LEAST AUDITORY HALLUCINATIONS EVIDENCED BY HER WORDS. SHE WENT TO BED AND ADMITS THAT SHE HAS "A HARD TIME SLEEPING" BECAUSE "I SLEEP MOST OF THE DAY". SHE WANTED "BENZOS, I WANT ATIVAN" TO HELP HER SLEEP. SHE WAS UP AT 2114, STATING THAT SHE IS "ANXIOUS" AND "I WANT MEDICATIONS". MEDICATION EDUCATION GIVEN AGAIN, AND SHE WAS TOLD TO LET THE EVENING MEDICATIONS START TO WORK. SHE WENT BACK TO HER ROOM. SHE CAME OUT AGAIN AT 2219, "GIVE ME BENZOS. GIVE ME ATIVAN". SHE STATED, "I HAD ATIVAN LAST TIME, WHAT DO YOU MEAN?" WHEN TOLD THAT SHE HAD NO ATIVAN ORDERED AT THIS TIME. RN SUGGESTED SHE GO TRY TO SLEEP AND ASK THE DR ABOUT MEDICATIONS IN THE MORNING. SHE YELLED, "YOU DON'T NEED THE DR. YOU CAN JUST GIVE THEM." RN ATTEMPTED TO EXPLAIN IT DOESN'T WORK THAT WAY. SHE WENT BACK TO HER ROOM. SHE BEGAN YELLING LOUDLY AT 2239, MALE MHA WENT TO ASK HER TO KEEP IT DOWN, OTHER PATIENTS WERE RESTING. SHE AGAIN DEMANDED "BENZOS" AND WAS TOLD TO TALK TO THE DOCTOR IN THE MORNING. AT 2327, SHE CAME OUT AND WANTED "PAIN MEDS". SHE WAS OFFERED TYLENOL FOR 10/10 (3/10 HAWLEY SCALE FACE SCORE) UPPER BACK/NECK PAIN, WHICH SHE STATED IS "CHRONIC". EDUCATION PROVIDED INTERACTIVELY WITH PATIENT DECIDING TO ASK THE DR IN THE MORNING ABOUT A LIDOCAINE PATCH. DISCUSSION OF IMAGERY, WHAT IT IS AND HOW TO USE IT. SOMEWHAT RECEPTIVE, GIGGLED AND WENT BACK TO BED. UP AGAIN AT 0005, YELLING OUT, QUIETED WHEN MALE MHA DID ROUNDS. AT 0037, SHE CAME OUT AND ASKED FOR HEADPHONES, AND WAS TOLD THAT WE CAN'T GIVE THEM OUT AFTER BEDTIME. SHE ACCEPTED THAT AND WENT BACK TO BED. UP AT 0135, YELLING, DEMANDING ATIVAN, DEMANDING TO LEAVE. EDUCATED REGARDING THE AMA PROCESS AND TALKING TO THE DOCTOR IN THE MORNING. REMINDED THAT OTHERS ARE SLEEPING. 0200: UP AGAIN, STOMPING DOWN THE DAVILA TO STATE, "I WANT TO GO TO THE HOSPITAL". SHE WAS REDIRECTED TO HER ROOM, AND SHE WENT. 0230: STOMPING LOUDLY DOWN THE DAVILA AGAIN, DEMANDING ATIVAN, REITERATED THAT SHE NEEDS TO TALK POLITELY AND IN A NORMAL TONE OF VOICE TO THE DOCTOR. SHE THEN STATED THAT SHE WANTS TO LEAVE. RN TOLD HER THAT SHE DOESN'T SEEM TO BE GETTING ANYTHING OUT OF HER STAY, AND IF SHE WANTS TO GO, SHE CAN TALK TO THE DOCTOR IN THE MORNING, BUT RIGHT NOW SHE NEEDS TO LET OTHERS SLEEP. SHE WENT QUIETLY DOWN THE DAVILA AND SOFTLY CLOSED HER DOOR, AND WENT TO BED. SINCE THAT TIME SHE HAS BEEN IN BED RESTING WITH EYES CLOSED AND RESPIRATIONS CONFIRMED. CONTINUING TO MONITOR FOR SAFETY WITH Q15 MINUTE CHECKS.
[2024-12-26 08:40] VITALS: BP 140/95
--- NOTE | 2024-12-26 16:55 | NUR ---
SHIFT SUMMARY PT A/O X4; ENDORSES PASSIVE SI AND REPORTS AVH. PT CALMER THIS SHIFT AND WORKING TO PRACTICE COPING SKILLS. PT HEARD RESPONDING TO INTERNAL STIMULI IN HER ROOM BUT IS REDIRECTABLE. ENCOURAGING PT TO INTERACT WITH PEERS AND USE THE HEADPHONES WHEN HALLUCINATING. PT MEDICATED X1 WITH PRN ZYPREXA THIS SHIFT FOR HALLUCINATIONS. PT REPORTED THAT ZYPREXA DID NOT WORK WELL. SHE PARTICIPATED IN ALL GROUPS AND MEALS THIS SHIFT.
[2024-12-26 19:33] VITALS: BP 130/92
--- NOTE | 2024-12-27 05:53 | NUR ---
SHIFT SUMMARY Pt is A&O, calm, cooperative, eye contact is minimal. Pt s mood is too tired, affect is blunted. Pt currently denies SI, HI, and VH, but endorses AH of voices. No reports of pain or other medical issues. Pt has been in her bed most of the evening, coming out only for snacktime and evening community group. After her snack, pt requested her evening meds and returned to her room, where she remained for the remainder of the shift. No behavioral issues noted. Staff continues to monitor q15m for safety and wellness.
[2024-12-27 08:41] VITALS: BP 131/100
--- NOTE | 2024-12-27 17:30 | NUR ---
SHIFT SUMMARY PT A/O X4; PLEASANT AND COOPERATIVE WITH CARE. SHE DENIES SI, HI, HALLUCINATIONS. PT REPORTS THAT SHE FEELS THAT SHE IS HEARING ACTUAL VOICES. WHEN ASKED IF THE VOICES BELONG TO OTHER PEOPLE ON THE UNIT SHE SAID "NO, IT'S PEOPLE TALKING THROUGH ME AND IT'S WEIRD THAT THEY ARE DOING THAT WITHOUT BEING HERE." PT SAYS THAT SHE IS READY TO GO HOME AND FEELS THAT SHE IS USING HER COPING SKILLS WELL. SHE HAS NOT REQUIRED ANY PRN MEDICATIONS AT THE TIME OF THIS NOTE. SHE ATTENDED SOME GROUPS AND ALL MEALS THIS SHIFT.
[2024-12-27 20:04] VITALS: BP 134/90
--- NOTE | 2024-12-28 04:10 | NUR ---
SHIFT SUMMARY PATIENT UP IN [place] LISTENING TO HEADPHONES AND READING IN [place]. VERBALIZED FEELING ANXIOUS HYDROXYZINE GIVEN WITH GOOD RESULTS. VERBALIZED FEELING IMPULSIVE AND POSSIBILITY OF SELF HARM, DENIES PLAN. PATIENT AGREES TO ASK STAFF FOR HELP IF CONTINUES TO HAVE URGE TO HARM SELF. DENIES HI. AUDITORY HALLUCINATIONS CONTINUE UNSURE OF WHAT THE VOICES ARE SAYING. DENIES VISUAL HALLUCINATIONS. COOPERATIVE WITH MEDICATIONS. AFTER EATING SNACK PATIENT GOING TO BED AND APPEARS TO BE SLEEPING WELL T/O NIGHT. CONTINUES TO BE SLEEPING RESP EVEN AND UNLABORED. CONTINUE TO MONITOR Q15MIN
[2024-12-28 08:52] VITALS: BP 129/97
--- NOTE | 2024-12-28 14:21 | NUR ---
SHIFT ASSESSMENT: PT ENDORSED SI WITH NO PLAN, THOUGHTS OF HI TOWARDS "MY KIDS." SHE REPORTED VOICES, "THEY CALL ME NAMES AND THEY SAY THEY ARE MY CHILDREN." PT DESCRIBED HER MOOD , "I'M IN A BAD MOOD." PT HAS ATTEDED A FEW GROUPS TODAY.
[2024-12-28 19:14] VITALS: BP 134/90
--- NOTE | 2024-12-29 04:05 | NUR ---
Patient spent most of the shift in bed. Had to be woken twice to get up for snack time. She is A&OX4 And denies AVTH on evening assessment. She still claims Suicidal Ideation without a plan, and HI towards her kids. She had minimal complaint of headache early in the shift which was resolved with tylenol. Nicolasa is very excited about the possibility of discharge on Saturday. Will continue close monitoring every 15 minutes for safety and comfort.
[2024-12-29 09:11] VITALS: BP 141/86
--- NOTE | 2024-12-29 16:55 | NUR ---
SHIFT SUMMARY PT AxOx4. PLEASANT AND COOPERATIVE WITH CARE. PT HAS BEEN FOLLOWING HER TREATMENT PLAN TODAY INCLUDING TAKING MEDICATIONS PRESCRIBED, ATTENDING [place] THERAPY GROUPS AND MINGLING APPROPRIATELY WITH STAFF/PEERS. PT REPORTED FEELING ANXIOUS TODAY, BUT DENIES SI/HI AND AVTH. SHE REPORTED HER MOOD TO BE "LOW." PT'S CURRENT DC PLAN IS ANTICIPATED FOR TOMORROW TO [facility]USTODIAL IN [place]. PT IS AWARE OF AND AGREEABLE TO THIS PLAN. SHE IS CURRENTLY IN HER BED, RESTING CALMLY. DENIED ANY NEEDS AT THIS TIME.
[2024-12-29 20:54] VITALS: BP 114/70
--- NOTE | 2024-12-30 04:24 | NUR ---
SHIFT SUMMARY PT LAYING IN BED AT START OF SHIFT, AWAKES EASILY. REPORTS HER MOOD "BETTER". SHE DENIES ANY CURRENT SI, HI, THOUGHTS OF SELF HARM OR VISUAL HALLUCINATIONS. PT REPORTS AUDITORY HALLUCINATIONS IN WHICH SHE HEARS "THE VOICE OF GOD". SHE DENIES ANY COMMAND HALLUCINATIONS. SHE DECLINED TO GET UP FOR EVENING SNACK, STATED SHE WASN'T HUNGRY. SHE WAS CALM AND COOPERATIVE WITH CARE AND COMPLIANT WITH MEDICATIONS. SHE RECEIVED PRN TRAZODONE AND MELATONIN. SHE HAS REMAINED IN BED THROUGHOUT MY SHIFT. Q15 MINUTE CHECKS TO CONTINUE PER PT SAFETY.
[2024-12-30] MEDS ORDERED: BUSP10 PO (08:40)
--- NOTE | 2024-12-30 09:38 | NUR ---
IMPORTANT DISCHARGE INFORMATION PATIENT TO BE DISCHARGED TODAY. [facility] TRANSPORT TO TAKE HER TO [facility] IN [place]. EXPORT SPECIALIST TIME IS 10:30 AM. ALL PARTIES VERBALIZE AN UNDERSTANDING. PATIENT HAS BEEN REFERRED TO [facility]: [facility] PHONE NUMBER NO LISTED FAX #
--- NOTE | 2024-12-30 13:00 | NUR ---
NURSE DISCHARGE SUMMARY PT AA&O TO PERSON, PLACE, SITUATION, AND TIME. SHE IS PLEASANT AND COOPERATIVE WITH CARE. SHE REPORTS MOOD EXCITED TO LEAVE. AFFECT IS CONGRUENT. SPEECH AND EYE CONTACT IS APPROPRIATE. DISCHARGE MEDICATIONS, HOW TO ACCESS MEDICAL RECORDS, DISCHARGE APPOINTMENTS. INFORMATION AND ADDRESS OF [facility] PRINTED AND GIVEN TO PATIENT. PT VERBALIZED UNDERSTANDING AND DENIED ANY QUESTIONS. PT DECLINE SMOKING CEASATION INFORMATION. PT BELONGINGS RETURNED AND PT DISCHARGED TO [facility] @1624
== END 2024-12-30 13:34 | disposition home or self-care (01) | DRG 885 ==
LOC: BHU 12:20
PROVIDERS: ADMIT Psychiatry & Neurology Psychiatry
DX: F25.9 Schizoaffective disorder, unspecified (principal); R45.851 Suicidal ideations; Z59.01 Sheltered homelessness; F10.10 Alcohol abuse, uncomplicated; F15.10 Other stimulant abuse, uncomplicated; F41.9 Anxiety disorder, unspecified; Z88.2 Allergy status to sulfonamides; Z79.899 Other long term (current) drug therapy
CPT/HCPCS: 36415; 80061; 83036; A9270

== ENCOUNTER 2025-03-30 08:52 | Inpatient (IN) | payer OTHER ==
[~2025-03-30] VITALS: Ht 160 cm; Wt 95.5 kg
[~2025-03-30 08:52] MED LIST changes: +BUSP10 PO
[2025-03-30] MEDS ORDERED: LORazepam 2 MG/ML 1ML Injection ONE (18:48)
[2025-03-30] MEDS ORDERED: DiphenhydrAMINE HCl 50 MG/ML 1ML Vial ONE (18:48)
[2025-03-30] MEDS ORDERED: Haloperidol Lactate Inj. 5 MG/ML Injection ONE (18:48)
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
[2025-03-30] MEDS ORDERED: FLU VACC TS2025-26(6MOS UP)/PF 45 MCG/0.5 ML SYRINGE IM SCH (19:15)
[2025-03-30] MEDS ORDERED: Haloperidol Lactate Inj. 5 MG/ML Injection IM PRN (19:15)
[2025-03-30] MEDS ORDERED: LORazepam 2 MG/ML 1ML Injection IM PRN (19:20)
[2025-03-30] MEDS ORDERED: Polyethylene Glycol 3350 17 gm PO PRN (19:25)
[2025-03-30] MEDS ORDERED: Aluminum Hydroxide 320MG/5ML 473 ML PO PRN (19:25)
[2025-03-30] MEDS ORDERED: DiphenhydrAMINE HCl 50 MG/ML 1ML Vial IM PRN (19:25)
[2025-03-30] MEDS ORDERED: Ondansetron 4 MG SoluTab MM PRN (19:25)
[2025-03-30 20:55] VITALS: BP 128/93
--- NOTE | 2025-03-30 22:08 | NUR ---
LATE NOTE Patient out of seclusion at 1937. Door open, patient laying on mat resting and waiting for snack. Apologized for getting so angry with staff on arrival. After meal, patient dressed in unit scrubs and given a tour of the unit then went to bed and shortly after and went to sleep. Will continue close monitoring every 15 minutes for comfort and safety.
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
[2025-03-31 08:45] LABS: CHOL/HDL RATIO 3.3; Cholesterol 184 mg/dL (50-200); HDL Cholesterol 55 mg/dL (>39); LDL/HDL RATIO 1.9; Low Density Lipoprotein Chol 102 mg/dL (0-110); Triglycerides 134 mg/dL (30-160); Very Low Density Lipoprot Chol 26 mg/dL (6-32)
[2025-03-31] MEDS ORDERED: Multivitamins 1 Tab PO SCH (09:00)
[2025-03-31 12:56] VITALS: BP 108/80
--- NOTE | 2025-03-31 14:09 | NUR ---
NURSE NOTE PT HAD SUDDEN OUTBURST OF CRYING, YELLING, AND SLAMMING DOORS WHILE SHE WAS BEING INTERVIEWED BY DR. HARMON. MEDICATED PT WITH B52 FOR MASS SCORE OF 15. PT ALSO ASKED FOR IBUPROFEN FOR NECK AND BACK PAIN 03/12. PT RESTING ON BED IN HER ROOM. WILL CONTINUE WITH Q15 CHECKS.
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
[2025-03-31 19:26] VITALS: BP 117/89
--- NOTE | 2025-04-01 03:43 | NUR ---
BEHAVIORAL NOTE PT WOKE AT APPROXIMATELY 0335 AND BEGAN PACING THE HALLWAY. SHE ENTERED INTO ROOM 605 AND SLAMMED THE DOOR. THIS AWOKE THE OCCUPANT OF THAT ROOM, AND THE PATIENT EXITED ROOM 605 AND BEGAN YELLING AND CRYING IN THE HALLWAY. PT WAS ESCORTED INTO THE SENSORY ROOM WHILE THIS PALEOLOGY TEACHER PREPARED PRN MEDICATIONS. THE PATIENT HAS REPEATEDLY TRIED TO ENTER OTHER PATIENTS ROOM DURING THIS SHIFT, BUT WAS SUCCESSFULLY REDIRECTED ON EACH PREVIOUS ATTMEPT. PT WAS GIVEN ORAL ATIVAN 2MG + BENADRYL 50MG + HALDOL 5MG AT 0338 FOR ANXIETY/AGITATION (MASS = 12). PT STAYED IN THE SENSORY ROOM FOR APPROXIMATELY 5 MINUTES BEFORE RETURNING TO HER ROOM.
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
--- NOTE | 2025-04-01 04:49 | NUR ---
PRN NOTE PATIENT RECEIVED THE FOLLOWING PRN MEDICATIONS DURING DINKER: VISTARIL 50MG AT 1908 FOR ANXIETY (MASS = 3), ORAL ATIVAN 2MG + BENADRYL 50MG + HALDOL 5MG AT 2128 FOR ANXIETY/AGITATION (MASS = 9), IBUPROFEN 600MG AT 2233 FOR 5/10 THROAT PAIN, TRAZADONE 50MG + ZYPREXA ZYDIS 10MG FOR ANXIETY/AGITATION (MASS = 6), ORAL ATIVAN 2MG + BENADRYL 50MG + HALDOL 5MG AT 0338 FOR ANXIETY/AGITATION (MASS = 12)
[2025-04-01 07:31] VITALS: BP 180/146
[2025-04-01 09:57] VITALS: BP 105/75
--- NOTE | 2025-04-01 17:52 | NUR ---
MEDICATION NOTE: PT HEARD IN HER ROOM YELLING UNTELLIGIBLE WORDS. OPENED THE DOOR AND STOMPED LOUDLY DOWN THE DAVILA TO THE NURSES STATION. HAS FISTS CLENCHED, STATES "I'M FREAKING OUT, I NEED SOMETHING TO CALM ME DOWN BEFORE I LOOSE IT". PT APPEARS ANXIOUS AND AGGITATED, RAISING HER VOICE AND DEMANDING. DISCUSSED MEDICATION WITH PT AND SHE IS AGREEABLE. PT MEDICATED PER EMAR WITH PRN ATIVAN, BENADRYL AND HALDOL FOR MASS SCORE OF 8.
--- NOTE | 2025-04-01 18:08 | NUR ---
SHIFT SUMMARY PT ENORSES SI, BUT NO INTENT/PLAN TO ACT WHILE ON UNIT. ENDORSES HI, BUT WILL NOT ELABORATE, DENIES HALLUCINATIONS AT THIS TIME. PT SLEEPING/RESTING QUIETLY T/O DAY EXCEPT FOR ONE TIME NEED OF B52 D/T AGITATION/ANXIETY. HAS BEEN TO MEALS. NO OTHER ACUTE EVENTS
[2025-04-01 20:17] VITALS: BP 133/95
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
--- NOTE | 2025-04-02 11:34 | NUR ---
IMPORTAND DISCHARGE INFORMATION PATIENT REQUESTED DISCHARGE AMA. SHE WAS GIVEN RESOURCES FOR [facility] INCLUDING: [employer] FOR CONTINUED MENTAL HEALTH, MEDICATION MANAGEMENT, FOOD PANTRIES, CLOTHING PANTRIES AND CONTINUED HOUSING SUPPORT. PATIENT DISCHARGED WITH: WINTER CLOTHING, EMERGENCY BACK PACK, SNACKS, WATER, RAIN PONCHO, SOCKS, WINTER CAP, HAND WARMERS AND EMERGENCY THERMAL MYLAR BLANKET.
--- NOTE | 2025-04-02 12:58 | NUR ---
AMA DISCHARGE NOTE PT DISCHARGED AMA FROM [facility] AT APPROX 1100 TODAY. PT WAS ADMITTED TO [facility] VOLUNTARILY FOR SI. PT DENIES SI THIS SHIFT. PT DECLINED PARTICIPATION OF TREATMENT ACTIVITIES THIS SHIFT. WHEN REMINDED OF REQUIREMENTS OF PARTICIPATION, PATIENT BECAME FRUSTRATED AND REFUSED TO GET OUT OF BED. PT THEN DEMANDED TO LEAVE. PROVIDER NOTIFIED AND PATIENT SIGNED AMA FORM. NURSING COUNTER FORMER MADE AWARE. PT'S BELONGINGS WERE RETURNED AND SHE WALKED OUT OF UNIT AT 1100.
== END 2025-04-02 11:00 | disposition home or self-care (01) | DRG 885 ==
LOC: BHU 08:52
PROVIDERS: Psychiatry & Neurology Psychiatry; ADMIT Psychiatry & Neurology Psychiatry
DX: F25.0 Schizoaffective disorder, bipolar type (principal); R45.851 Suicidal ideations; E03.9 Hypothyroidism, unspecified; E11.9 Type 2 diabetes mellitus without complications; F19.10 Other psychoactive substance abuse, uncomplicated; F41.9 Anxiety disorder, unspecified; R45.6 Violent behavior; Z88.2 Allergy status to sulfonamides; Z79.899 Other long term (current) drug therapy; Z90.89 Acquired absence of other organs; Z98.890 Other specified postprocedural states; Z23 Encounter for immunization
CPT/HCPCS: 36415; 80061; 83036; 96372; A9270; J1200; J1630; J2060

== ENCOUNTER 2025-04-04 02:14 | Observation (INO) | payer OTHER ==
[~2025-04-04] VITALS: Ht 162.6 cm; Wt 65.8 kg
[2025-04-04 04:17] LABS: BASOPHILS ABSOLUTE AUTO 0.05 K/mm3 (0.00-0.23); BASOPHILS PERCENT AUTO 1 % (0-2); EOSINOPHILS ABSOLUTE AUTO 0.22 K/mm3 (0.00-0.68); EOSINOPHILS PERCENT AUTO 2 % (0-6); Hematocrit 40.9 % (33.0-51.0); Hemoglobin 13.4 g/dL (11.5-16.0); IMMATURE GRAN ABSOLUTE AUTO 0.06 K/mm3 (0.00-0.10); IMMATURE GRAN PERCENT AUTO 1 % (0-1); LYMPHOCYTES ABSOLUTE AUTO 2.97 K/mm3 (0.84-5.20); LYMPHOCYTES PERCENT AUTO 29 % (21-46); MONOCYTES ABSOLUTE AUTO 1.19 K/mm3 (0.16-1.47); MONOCYTES PERCENT AUTO 12 % (4-13); Mean Corpuscular HGB Conc 32.8 g/dL (31.5-36.5); Mean Corpuscular Volume 84 fL (80-100); NEUTROPHILS ABSOLUTE AUTO 5.74 K/mm3 (1.96-9.15); NEUTROPHILS PERCENT AUTO 56 % (41-73); NRBC ABSOLUTE 0.00 K/mm3 (0.00-0.02); NRBC Auto 0.0 /100 WBC (0.0-0.2); Platelet Count 219 K/mm3 (150-400); RDW Coefficient Variation 13.9 % (11.7-14.2); RDW Standard Deviation 42.5 fL (35.1-46.3)
[2025-04-04 04:33] LABS: Ethanol (Alcohol), Blood, Med <3 mg/dL; Salicylate 3.4 mg/dL (2.8-20.0)
[2025-04-04 04:44] LABS: Alanine Aminotransfer (ALT/SGP 24 U/L (12-78); Albumin, Blood 3.6 g/dL (3.4-5.0); Albumin/Globulin Ratio 1.1 (0.8-1.8); Anion Gap 9 mmol/L (3-11); Aspartate Aminotrans (AST/SGOT 18 U/L (12-37); Bilirubin, Total 0.2 mg/dL (0.1-1.0); Blood Urea Nitrogen 8 mg/dL (8-24); CO2, Blood 26 mmol/L (21-32); Calcium, Blood 8.6 mg/dL (8.5-10.1); Chloride, Blood 105 mmol/L (98-108); Creatinine, Blood 0.58 mg/dL (0.40-1.00); Globulin, Blood 3.3 g/dL (2.2-4.0); Glucose, Blood 109 mg/dL (70-99); Potassium, Blood 3.7 mmol/L (3.5-5.5); Sodium, Blood 136 mmol/L (136-145); Total Protein, Blood 6.9 g/dL (6.4-8.2)
[2025-04-04 04:44] LABS: Source, Urine Clean Catch
[2025-04-04 04:46] LABS: Acetaminophen, Random <2.0 ug/mL (10.0-30.0)
[2025-04-04 05:17] LABS: Bilirubin, Urine Neg (Neg); Glucose Qualitative, Urine Neg (Neg); Ketones, Urine Neg (Neg); Leukocyte Esterase, Urine Neg (Neg); Protein, Urine Neg (Neg); Specific Gravity, Urine 1.010 (1.003-1.022); Urobilinogen, Urine NORM (Normal)
[2025-04-04 05:24] LABS: Color, Urine Yellow (P-Yellow)
[2025-04-04 05:30] LABS: U Amphetamine Screen Not Detected; U Barbiturate Screen Not Detected; U Benzodiazapine Screen DETECTED; U Buprenorphine Screen Not Detected; U Cannabinoids Screen Not Detected; U Cocaine Screen Not Detected; U Methadone Screen Not Detected; U Methamphetamine Screen Not Detected; U Opiates Screen Not Detected; U Oxycodone Screen Not Detected; U Phencyclidine Screen Not Detected
[2025-04-04] MEDS ORDERED: LORazepam 2 MG/ML 1ML Injection IM ONE (14:00)
[2025-04-04] MEDS ORDERED: DiphenhydrAMINE HCl 50 MG/ML 1ML Vial IM ONE (14:00)
[2025-04-04] MEDS ORDERED: Haloperidol Lactate Inj. 5 MG/ML Injection IM ONE (14:00)
[2025-04-05] MEDS ORDERED: DiphenhydrAMINE HCl 50 MG/ML 1ML Vial IM ONE (17:10)
[2025-04-05] MEDS ORDERED: LORazepam 2 MG/ML 1ML Injection IM ONE (17:10)
[2025-04-05] MEDS ORDERED: Haloperidol Lactate Inj. 5 MG/ML Injection IM ONE (17:10)
== END 2025-04-05 19:21 ==
LOC: ER 02:14 → EOR 02:15
PROVIDERS: ADMIT Student in an Organized Health Care Education/Training Program
DX: F25.0 Schizoaffective disorder, bipolar type (principal); R45.851 Suicidal ideations; E03.9 Hypothyroidism, unspecified; F17.210 Nicotine dependence, cigarettes, uncomplicated
CPT/HCPCS: 80053; 80320; 81003; 81025; 85025; 96372; 99285-25; A9270; G0378; G0480; J1200; J1630; J2060